=== PATIENT | female | born 1990 | race Hispanic/Latino ===

== ENCOUNTER 2018-09-21 15:01 | Emergency (ER) | payer BC ==
[2018-09-21] MEDS ORDERED: NA CHLORIDE 0.9% 1,000 ML ONE ×2 (15:56→17:34)
[2018-09-21] MEDS ORDERED: PROMETHAZINE 25 MG/ML VIAL ONE (16:19)
[2018-09-21 16:30] LABS: BUN Blood Urea Nitrogen 12 mg/dL (7-18); Bicarbonate 24 mmol/L (21-32); Glucose Level 92 mg/dL (74-106); Potassium 3.6 mmol/L (3.5-5.1); Sodium Level 141 mmol/L (136-145)
[2018-09-21 16:31] LABS: Absolute Lymphocytes (CBC) 0.8 K/uL (0.7-4.9); Absolute Monocytes 0.2 K/uL (0.1-1.3); Absolute Neutrophil 8.8 K/uL (1.8-8.0); Basophils % 0.2 % (0-1.3); Hematocrit 30.6 % (36.0-45.0); Lymphocytes % 7.7 % (15.3-44.8); MPV 10.8 fL (7.6-11.3); Monocytes % 1.9 % (3.3-12.3)
[2018-09-21 18:11] LABS: Urine Bacteria <20 /HPF (<20); Urine Culture Reflex Order NOT NEEDED; Urine RBC NONE SEEN /HPF (NONE SEEN)
--- NOTE | 2018-09-21 18:25 | ER ---
Nurse's Notes [facility] Name: Sangeeta Danielson Age: 28 yrs Sex: Female : 1990 Arrival Date: 09/21/2018 Time: 15:02 Bed 20 Private MD: Diagnosis: Headache;Dehydration; state Presentation: 09/21 15:18 Presenting complaint: states: Headache nausea and vomiting that started about sg an hour ago, has felt weak today, pt appears pale and lethargic in triage, denies Fever at this time. Transition of care: patient was not received from another setting of care. Onset of symptoms was September 21, 2018. Risk Assessment: Do you want to hurt yourself or someone else? Patient reports no desire to harm self or others. Initial Sepsis Screen: Does the patient meet any 2 criteria? No. Patient's initial sepsis screen is negative. Does the patient have a suspected source of infection? No. Patient's initial sepsis screen is negative. Care prior to arrival: None. 15:18 Method Of Arrival: Ambulatory sg 15:18 Acuity: BRENDA 3 sg Historical: - Allergies: 15:19 No Known Allergies; sg - Home Meds: 15:19 None [Active]; sg - PMHx: 15:19 None; sg - PSHx: 15:19 None; sg - Immunization history:: Adult Immunizations not up to date. - Social history:: Smoking status: Patient/guardian denies using tobacco. - Ebola Screening: : Patient negative for fever greater than or equal to 101.5 degrees Fahrenheit, and additional compatible Ebola Virus Disease symptoms Patient denies exposure to infectious person Patient denies travel to an Ebola-affected area in the 21 days before illness onset No symptoms or risks identified at this time. Screenin:20 Abuse screen: Denies threats or abuse. Nutritional screening: No deficits noted. em Tuberculosis screening: No symptoms or risk factors identified. Fall Risk None identified. Assessment: 16:00 General: Appears in no apparent distress. uncomfortable, ill, Behavior is calm, em cooperative, Reports feeling ill for Denies fever. Pain: Complains of pain in left zygomatic area and left side of forehead Pain currently is 9 out of 10 on a pain scale. Quality of pain is described as sharp. Neuro: Level of Consciousness is awake, alert, obeys commands, Oriented to person, place, time, situation, Reports blurred vision only in the right eye that lasted about 10 minutes headache in left photophobia. Cardiovascular: Capillary refill < 3 seconds Patient's skin is warm and dry. Respiratory: Airway is patent Respiratory effort is even, unlabored, Respiratory pattern is regular, symmetrical. GI: : No signs and/or symptoms were reported regarding the genitourinary system. EENT: No signs and/or symptoms were reported regarding the EENT system. Derm: Skin is intact, is healthy with good turgor, Skin is pink, warm \T\ dry. Musculoskeletal: Range of motion: intact in all extremities. 16:15 Reassessment: I agree with previous assessment. hb 17:28 Reassessment: Patient appears in no apparent distress at this time. Patient and/or em family updated on plan of care and expected duration. Pain level reassessed. Patient is alert, oriented x 3, equal unlabored respirations, skin warm/dry/pink. rates pain 4/10, reports headache is better Patient states feeling better. 18:25 Reassessment: Patient appears in no apparent distress at this time. Patient and/or em family updated on plan of care and expected duration. Pain level reassessed. Patient is alert, oriented x 3, equal unlabored respirations, skin warm/dry/pink. Patient states feeling better. Vital Signs: 15:20 BP 98 / 54; Pulse 78; Resp 18; Temp 99.4; Pulse Ox 100% ; sg 16:20 BP 104 / 57; Pulse 65; Resp 18; Pulse Ox 99% on R/A; Pain 9/10; em 17:33 BP 94 / 49; Pulse 72; Resp 18; Pulse Ox 100% on R/A; Pain 4/10; em 18:09 BP 100 / 51; Pulse 80; Resp 18; Pulse Ox 100% on R/A; em [place] Coma Score: 17:16 Eye Response: spontaneous(4). Verbal Response: oriented(5). Motor Response: obeys snw commands(6). Total: 15. ED Course: 15:02 Patient arrived in ED. ds1 15:17 Arm band placed on. sg 15:19 Triage completed. sg 15:26 [facility]C [facility] snw 15:26 Darrel Munroe MD is Attending Physician. snw 15:40 Juan David Tatum LVN is Primary Nurse. em 16:20 Patient has correct armband on for positive identification. Placed in gown. Bed in low em position. Call light in reach. Side rails up X2. Adult w/ patient. Pulse ox on. NIBP on. 16:20 Initial lab(s) drawn, by me, sent to lab. Inserted saline lock: 20 gauge in right em antecubital area, using aseptic technique. Blood collected. 19:03 No provider procedures requiring assistance completed. IV discontinued, intact, em bleeding controlled, No redness/swelling at site. Pressure dressing applied. Administered Medications: 16:11 Drug: NS 0.9% 1000 ml Route: IV; Rate: 1 bolus; Site: right antecubital; hb 17:30 Follow up: IV Status: Completed infusion; IV Intake: 1000ml em 16:27 Drug: Phenergan 12.5 mg Route: IVP; Site: right antecubital; hb 17:39 Follow up: Response: No adverse reaction; Nausea is decreased em 17:27 Drug: NS 0.9% 1000 ml Route: IV; Rate: 1 bolus; Site: right antecubital; em 19:04 Follow up: IV Status: Completed infusion; IV Intake: 1000ml em 18:29 Drug: Tylenol 1000 mg Route: PO; em 19:02 Follow up: Response: No adverse reaction em Intake: 17:30 IV: 1000ml; Total: 1000ml. em 19:04 IV: 1000ml; Total: 2000ml. em Outcome: 18:25 Discharge ordered by . snw 19:03 Discharged to home ambulatory, with family. em 19:03 Condition: good 19:03 Discharge instructions given to patient, family, Instructed on discharge instructions, follow up and referral plans. medication usage, Demonstrated understanding of instructions, follow-up care, medications, Prescriptions given X 1. 19:05 Patient left the ED. em Signatures: Cullen Osuna, JOSE JUAN RN sg Jessy Delcid, HAND SCRAPER-C HAND SCRAPER-Csnw Juan David Tatum LVN [employer] BROOM CLIPPER em Ivana Kemp ds1 Amanda Hess RN RN hb
--- NOTE | 2018-09-21 18:25 | EDPHYS ---
Physician Documentation [facility] Name: Sangeeta Danielson Age: 28 yrs Sex: Female : 1990 Arrival Date: 09/21/2018 Time: 15:02 Bed 20 Private MD: Darrel Carrasquillo HPI: 09/21 16:07 This 28 yrs old Female presents to ER via Ambulatory with complaints of snw Headache, Nausea, 10 Wks Preg. 16:07 The patient complains of pain to the left eye, left side of forehead and left zygomatic snw area. The patient describes the headache as constant. Onset: The symptoms/episode began/occurred suddenly, today. Severity of symptoms: At its worst the pain was moderate, severe. Headache History: Denies prior headaches. The patient has not experienced similar symptoms in the past. The patient has been recently seen by a physician: an timers inspector specialist, with different complaint(s), initial visit for this , labs performed reveal anemia, Fe supplementation begun. Historical: - Allergies: 15:19 No Known Allergies; sg - Home Meds: 15:19 None [Active]; sg - PMHx: 15:19 None; sg - PSHx: 15:19 None; sg - Immunization history:: Adult Immunizations not up to date. - Social history:: Smoking status: Patient/guardian denies using tobacco. - Ebola Screening: : Patient negative for fever greater than or equal to 101.5 degrees Fahrenheit, and additional compatible Ebola Virus Disease symptoms Patient denies exposure to infectious person Patient denies travel to an Ebola-affected area in the 21 days before illness onset No symptoms or risks identified at this time. ROS: 16:01 ENT: Negative for injury, pain, and discharge, Neck: Negative for injury, pain, and snw swelling, Cardiovascular: Negative for chest pain, palpitations, and edema, Respiratory: Negative for shortness of breath, cough, wheezing, and pleuritic chest pain, Back: Negative for injury and pain, : Negative for injury, bleeding, discharge, and swelling, MS/Extremity: Negative for injury and deformity, Skin: Negative for injury, rash, and discoloration, Neuro: Negative for headache, weakness, numbness, tingling, and seizure. 16:01 Constitutional: Positive for fatigue, malaise. 16:01 Eyes: Positive for pain, of the left eyebrow, left upper eyelid, left lower eyelid and left eye. 16:01 Abdomen/GI: Positive for nausea and vomiting. Exam: 16:01 Head/Face: Normocephalic, atraumatic. Eyes: Pupils equal round and reactive to light, snw extra-ocular motions intact. Lids and lashes normal. Conjunctiva and sclera are non-icteric and not injected. Cornea within normal limits. Periorbital areas with no swelling, redness, or edema. ENT: Nares patent. No nasal discharge, no septal abnormalities noted. Tympanic membranes are normal and external auditory canals are clear. Oropharynx with no redness, swelling, or masses, exudates, or evidence of obstruction, uvula midline. Mucous membranes moist. Neck: Trachea midline, no thyromegaly or masses palpated, and no cervical lymphadenopathy. Supple, full range of motion without nuchal rigidity, or vertebral point tenderness. No Meningismus. Chest/axilla: Normal chest wall appearance and motion. Nontender with no deformity. No lesions are appreciated. Cardiovascular: Regular rate and rhythm with a normal S1 and S2. No gallops, murmurs, or rubs. Normal PMI, no JVD. No pulse deficits. Respiratory: Lungs have equal breath sounds bilaterally, clear to auscultation and percussion. No rales, rhonchi or wheezes noted. No increased work of breathing, no retractions or nasal flaring. Abdomen/GI: Soft, non-tender, with normal bowel sounds. No distension or tympany. No guarding or rebound. No evidence of tenderness throughout. Back: No spinal tenderness. No costovertebral tenderness. Full range of motion. Skin: Warm, dry with normal turgor. Normal color with no rashes, no lesions, and no evidence of cellulitis. MS/ Extremity: Pulses equal, no cyanosis. Neurovascular intact. Full, normal range of motion. Neuro: Awake and alert, GCS 15, oriented to person, place, time, and situation. Cranial nerves II-XII grossly intact. Motor strength 5/5 in all extremities. Sensory grossly intact. Cerebellar exam normal. Normal gait. Psych: Awake, alert, with orientation to person, place and time. Behavior, mood, and affect are within normal limits. 16:01 Constitutional: The patient appears alert, awake, pale, uncomfortable. Vital Signs: 15:20 BP 98 / 54; Pulse 78; Resp 18; Temp 99.4; Pulse Ox 100% ; sg 16:20 BP 104 / 57; Pulse 65; Resp 18; Pulse Ox 99% on R/A; Pain 9/10; em 17:33 BP 94 / 49; Pulse 72; Resp 18; Pulse Ox 100% on R/A; Pain 4/10; em 18:09 BP 100 / 51; Pulse 80; Resp 18; Pulse Ox 100% on R/A; em [place] Coma Score: 17:16 Eye Response: spontaneous(4). Verbal Response: oriented(5). Motor Response: obeys snw commands(6). Total: 15. MDM: 15:26 Patient medically screened. snw 17:16 Data reviewed: vital signs, nurses notes. Data interpreted: Pulse oximetry: on room air snw is 100 %. Interpretation: normal. Counseling: I had a detailed discussion with the patient and/or guardian regarding: the historical points, exam findings, and any diagnostic results supporting the discharge/admit diagnosis, lab results. Response to treatment: the patient's symptoms have markedly improved after treatment. ED course: nausea resolved, pain significantly improved per pt, up to void, denies dizziness. 09/21 15:28 Order name: Flu; Complete Time: 16:53 snw 09/21 15:28 Order name: Strep; Complete Time: 16:40 snw 09/21 15:28 Order name: Abo/rh Typing; Complete Time: 16:44 snw 09/21 15:28 Order name: Basic Metabolic Panel; Complete Time: 16:40 snw 09/21 15:28 Order name: CBC with Diff; Complete Time: 16:40 snw 09/21 15:28 Order name: Urine Culture snw 09/21 15:28 Order name: Urine Microscopic Only; Complete Time: 18:18 snw 09/21 16:33 Order name: Throat Culture EDMS 09/21 16:56 Order name: ABO/RH no charge; Complete Time: 17:08 EDMS 09/21 17:23 Order name: Urine Dipstick--Ancillary (enter results) ms 09/21 17:23 Order name: Urine --Ancillary (enter results) ms 09/21 15:28 Order name: IV Saline Lock; Complete Time: 15:59 09/21 15:28 Order name: Labs collected and sent; Complete Time: 15:59 09/21 15:28 Order name: NPO; Complete Time: 15:59 09/21 16:09 Order name: Oxygen: via NRB at 15L/min x 10 minutes; Complete Time: 16:22 09/21 17:14 Order name: VS Recheck; Complete Time: 17:39 em Administered Medications: 16:11 Drug: NS 0.9% 1000 ml Route: IV; Rate: 1 bolus; Site: right antecubital; hb 17:30 Follow up: IV Status: Completed infusion; IV Intake: 1000ml em 16:27 Drug: Phenergan 12.5 mg Route: IVP; Site: right antecubital; hb 17:39 Follow up: Response: No adverse reaction; Nausea is decreased em 17:27 Drug: NS 0.9% 1000 ml Route: IV; Rate: 1 bolus; Site: right antecubital; em 19:04 Follow up: IV Status: Completed infusion; IV Intake: 1000ml em 18:29 Drug: Tylenol 1000 mg Route: PO; em 19:02 Follow up: Response: No adverse reaction em Disposition: 09/22 07:55 Co-signature as Attending Physician, Darrel Munroe MD I agree with the assessment and tyesha plan of care. Disposition: 09/21/18 18:25 Discharged to Home. Impression: Headache, Dehydration, state. - Condition is Stable. - Discharge Instructions: Iron Deficiency Anemia, Adult, Dehydration, Adult, General Headache Without Cause, Nausea and Vomiting, Adult, First Trimester of , Rehydration, Adult. - Prescriptions for promethazine 25 mg Oral Tablet - take 1 tablet by ORAL route every 6 hours As needed; 10 tablet. - Medication Reconciliation Form, Thank You Letter, Antibiotic Education, Prescription Opioid Use, Work release form form. - Follow up: Emergency Department; When: As needed; Reason: Worsening of condition. Follow up: Private Physician; When: 2 - 3 days; Reason: Recheck today's complaints, Continuance of care, Re-evaluation by your physician. Signatures: Dispatcher [employer] Cullen Flannery RN RN sg Anderson, Corey, MD MD cha Therrien, Shelly, AUTO DESIGN DETAILER-C AUTO DESIGN DETAILER-Csnw Juan David Tatum, BLADE GROOVER BLADE GROOVER em Amanda Hess, RN RN Corrections: (The following items were deleted from the chart) 09/21 19:05 18:25 09/21/2018 18:25 Discharged to Home. Impression: Headache; Dehydration; em state. Condition is Stable. Discharge Instructions: Iron Deficiency Anemia, Adult, Dehydration, Adult, General Headache Without Cause, Nausea and Vomiting, Adult, First Trimester of , Rehydration, Adult. Prescriptions for promethazine 25 mg Oral Tablet - take 1 tablet by ORAL route every 6 hours As needed; 10 tablet. and Forms are Medication Reconciliation Form, Thank You Letter, Antibiotic Education, Prescription Opioid Use. Follow up: Emergency Department; When: As needed; Reason: Worsening of condition. Follow up: Private Physician; When: 2 - 3 days; Reason: Recheck today's complaints, Continuance of care, Re-evaluation by your physician. snw
[2018-09-21] MEDS ORDERED: ACETAMINOPHEN 500 MG TAB ONE (18:34)
[2018-09-21 20:39] LABS: Urine Blood NEGATIVE (NEG); Urine Glucose NEGATIVE (NEG); Urine Protein NEGATIVE (NEG); Urine Specific Gravity 1.015 (1.005-1.030)
== END 2018-09-21 19:05 | disposition home or self-care (01) ==
LOC: ER 15:01
DX: O26.899 Other specified pregnancy related conditions, unspecified trimester (principal); R51 Headache; E86.0 Dehydration; Z3A.00 Weeks of gestation of pregnancy not specified
CPT/HCPCS: 36415; 80048; 81003; 81015; 81025; 85025; 86900; 86901; 87070; 87081; 87086; 87088; 87804; 96361; 96374; 99284; J2550; J7030

== ENCOUNTER 2019-02-23 09:26 | Emergency (ER) | payer BC ==
--- OUTSIDE RECORDS SUMMARY | 2019-02-23 09:28 | XMS REPORT ---
:1990 [facility] Address [address] [place] [address] Care Team Providers Name Role Phone Unavailable Unavailable Unavailable Problems This patient has no known problems. Allergies, Adverse Reactions, Alerts This patient has no known allergies or adverse reactions. Medications This patient has no known medications.
[2019-02-23 10:11] LABS: Urine Blood NEGATIVE (NEG); Urine Glucose NEGATIVE (NEG); Urine Protein NEGATIVE (NEG); Urine Specific Gravity 1.015 (1.005-1.030)
[2019-02-23 10:36] LABS: Urine Bacteria <20 /HPF (<20); Urine RBC <5 /HPF (NONE SEEN)
[2019-02-23 10:37] LABS: Urine Culture Reflex Order NOT NEEDED
[2019-02-23] MEDS ORDERED: SUCRALFATE 1 GM TABLET ONE (10:46)
--- NOTE | 2019-02-23 10:54 | ER ---
Nurse's Notes [facility] Name: Sangeeta Danielson Age: 29 yrs Sex: Female : 1990 Arrival Date: 02/23/2019 Time: 09:29 Bed 8 Private MD: Diagnosis: Gastro-esophageal reflux disease;Nausea and vomiting;Diarrhea, unspecified; state Presentation: 02/23 09:48 Presenting complaint: states: son tested positive for strep on Saturday, last iw night pt started having similar symptoms, abd pain, vomiting, diarrhea, denies fever, denies sore throat, pt c/o pain radiating from back to epigastric area 10/05, pt is approx 34 weeks , was cleared by L\T\D. Transition of care: patient was not received from another setting of care. Onset of symptoms was February 23, 2019. Risk Assessment: Do you want to hurt yourself or someone else? Patient reports no desire to harm self or others. Initial Sepsis Screen: Does the patient meet any 2 criteria? No. Patient's initial sepsis screen is negative. Does the patient have a suspected source of infection? No. Patient's initial sepsis screen is negative. Care prior to arrival: cleared by L\T\D. 09:48 Method Of Arrival: Wheelchair iw 09:48 Acuity: BRENDA 3 iw Triage Assessment: 09:55 General: Appears in no apparent distress. comfortable, Behavior is calm, cooperative, bp appropriate for age. Pain: Complains of pain in abdomen. EENT: No deficits noted. Neuro: No deficits noted. Cardiovascular: No deficits noted. Respiratory: No deficits noted. GI: Reports epigastric pain. : No signs and/or symptoms were reported regarding the genitourinary system. Derm: No deficits noted. Musculoskeletal: No deficits noted. FUNERAL GREETER: 09:55 LMP 06/23/2018 iw Historical: - Allergies: 09:55 No Known Allergies; iw - Home Meds: 09:55 None [Active]; iw - PMHx: 09:55 None; iw - PSHx: 09:55 None; iw - Immunization history:: Adult Immunizations not up to date. - Social history:: Smoking status: Patient/guardian denies using tobacco. - Ebola Screening: : Patient negative for fever greater than or equal to 101.5 degrees Fahrenheit, and additional compatible Ebola Virus Disease symptoms Patient denies exposure to infectious person Patient denies travel to an Ebola-affected area in the 21 days before illness onset No symptoms or risks identified at this time. Screenin:03 Abuse screen: Denies threats or abuse. Denies injuries from another. Nutritional bp screening: No deficits noted. Tuberculosis screening: No symptoms or risk factors identified. Fall Risk None identified. Assessment: 10:03 General: SEE TRIAGE NOTE. bp 10:59 Reassessment: PO CHALLENGE SUCCESSFUL. bp 11:04 Reassessment: PT D/C HOME AMBULATORY WITH FAMILY, DX WITH GERD. bp Vital Signs: 09:55 BP 93 / 59; Pulse 91; Resp 16; Temp 97.5(TE); Pulse Ox 99% on R/A; Pain 3/10; iw 11:06 BP 101 / 57; Pulse 87; Resp 16; Temp 97.5; Pulse Ox 99% ; bp ED Course: 09:29 Patient arrived in ED. as 09:31 [facility]-C [facility]. snw 09:31 Adi Steiner MD is Attending Physician. snw 09:46 Jan Kim, JOSE JUAN is Primary Nurse. bp 09:54 Triage completed. iw 09:55 Arm band placed on. iw 10:01 Group A Streptococcus Rapid Sc Sent. hj 10:01 Strep Sent. hj 10:01 Urine Culture Sent. hj 10:01 Urine Microscopic Only Sent. hj 10:03 Patient has correct armband on for positive identification. Bed in low position. Call bp light in reach. Side rails up X2. Adult w/ patient. 11:05 No provider procedures requiring assistance completed. Patient did not have IV access bp during this emergency room visit. Administered Medications: 10:30 Drug: CarafATE 1 grams Route: PO; bp 10:43 Follow up: Response: No adverse reaction bp Outcome: 10:54 Discharge ordered by . snw 11:05 Discharged to home ambulatory, with family. bp 11:05 Condition: stable 11:05 Discharge instructions given to patient, Instructed on discharge instructions, follow up and referral plans. medication usage, Demonstrated understanding of instructions, follow-up care, medications, Prescriptions given X 1. 11:06 Patient left the ED. bp Signatures: Jessy Delcid FNP-C FNP-Csnw Martinez, Tanya as Adelia Krishna, RN RN iw Jb Hutson, RN RN hj Jan Kim, RN RN bp
--- NOTE | 2019-02-23 10:55 | EDPHYS ---
Physician Documentation [facility] Name: Sangeeta Danielson Age: 29 yrs Sex: Female : 1990 Arrival Date: 02/23/2019 Time: 09:29 Bed 8 Private MD: ED Physician Adi Steiner HPI: 02/23 10:56 This 29 yrs old Female presents to ER via Wheelchair with complaints of snw Epigastric Pain, Back Pain, 33 wks preg. 10:56 The patient presents with abdominal pain in the epigastric area. Onset: The snw symptoms/episode began/occurred suddenly, 2 day(s) ago, and became persistent. The symptoms do not radiate. Associated signs and symptoms: Pertinent positives: nausea, vomiting, and diarrhea, Pertinent negatives: fever. The symptoms are described as crampy. Severity of pain: At its worst the pain was moderate. It is unknown whether or not the patient has had similar symptoms in the past. The patient has not recently seen a physician. sons with similar s/s, Spouse with mild N/loose stools over the weekend. 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 - Social history:: Smoking status: Patient/guardian denies using tobacco. - Ebola Screening: : Patient negative for fever greater than or equal to 101.5 degrees Fahrenheit, and additional compatible Ebola Virus Disease symptoms Patient denies exposure to infectious person Patient denies travel to an Ebola-affected area in the 21 days before illness onset No symptoms or risks identified at this time. ROS: 10:56 Constitutional: Negative for fever, chills, and weight loss, Eyes: Negative for injury, snw pain, redness, and discharge, ENT: Negative for injury, pain, and discharge, Neck: Negative for injury, pain, and swelling, Cardiovascular: Negative for chest pain, palpitations, and edema, Respiratory: Negative for shortness of breath, cough, wheezing, and pleuritic chest pain, Back: Negative for injury and pain, : Negative for injury, bleeding, discharge, and swelling, MS/Extremity: Negative for injury and deformity, Skin: Negative for injury, rash, and discoloration, Neuro: Negative for headache, weakness, numbness, tingling, and seizure. 10:56 Abdomen/GI: Positive for abdominal pain, nausea, vomiting, and diarrhea, of the epigastric area, 33 week IUP. Exam: 10:56 Constitutional: This is a well developed, well nourished patient who is awake, alert, snw and in no acute distress. Head/Face: Normocephalic, atraumatic. Eyes: Pupils equal round and reactive to light, extra-ocular motions intact. Lids and lashes normal. Conjunctiva and sclera are non-icteric and not injected. Cornea within normal limits. Periorbital areas with no swelling, redness, or edema. ENT: Nares patent. No nasal discharge, no septal abnormalities noted. Tympanic membranes are normal and external auditory canals are clear. Oropharynx with no redness, swelling, or masses, exudates, or evidence of obstruction, uvula midline. Mucous membranes moist. Neck: Trachea midline, no thyromegaly or masses palpated, and no cervical lymphadenopathy. Supple, full range of motion without nuchal rigidity, or vertebral point tenderness. No Meningismus. Chest/axilla: Normal chest wall appearance and motion. Nontender with no deformity. No lesions are appreciated. Cardiovascular: Regular rate and rhythm with a normal S1 and S2. No gallops, murmurs, or rubs. Normal PMI, no JVD. No pulse deficits. Respiratory: Lungs have equal breath sounds bilaterally, clear to auscultation and percussion. No rales, rhonchi or wheezes noted. No increased work of breathing, no retractions or nasal flaring. Back: No spinal tenderness. No costovertebral tenderness. Full range of motion. Skin: Warm, dry with normal turgor. Normal color with no rashes, no lesions, and no evidence of cellulitis. MS/ Extremity: Pulses equal, no cyanosis. Neurovascular intact. Full, normal range of motion. Neuro: Awake and alert, GCS 15, oriented to person, place, time, and situation. Cranial nerves II-XII grossly intact. Motor strength 5/5 in all extremities. Sensory grossly intact. Cerebellar exam normal. Normal gait. Psych: Awake, alert, with orientation to person, place and time. Behavior, mood, and affect are within normal limits. 10:56 Abdomen/GI: Inspection: gravid appearance, is noted, Bowel sounds: normal, Palpation: abdomen is soft and non-tender, in all quadrants. Vital Signs: 09:55 BP 93 / 59; Pulse 91; Resp 16; Temp 97.5(TE); Pulse Ox 99% on R/A; Pain 3/10; iw 11:06 BP 101 / 57; Pulse 87; Resp 16; Temp 97.5; Pulse Ox 99% ; bp MDM: 09:45 Patient medically screened. snw 11:00 Data reviewed: vital signs, nurses notes. Data interpreted: Pulse oximetry: on room air snw is 99 %. Interpretation: normal. Counseling: I had a detailed discussion with the patient and/or guardian regarding: the historical points, exam findings, and any diagnostic results supporting the discharge/admit diagnosis, lab results, the need for outpatient follow up, to return to the emergency department if symptoms worsen or persist or if there are any questions or concerns that arise at home. Special discussion: Based on the patient's Hx, exam, and Dx evaluation, there is no indication for emergent surgery or inpatient Tx. It is understood by the patient/guardian that if the Sx's persist or worsen they need to return immediately for re-evaluation. Based on the history and exam findings, there is no indication for further emergent testing or inpatient evaluation. I discussed with the patient/guardian the need to see the OB Gyne specialist for further evaluation of the symptoms. I discussed with the patient/guardian the need to see the primary care provider for further evaluation of the symptoms. 02/23 09:52 Order name: Strep snw 02/23 09:52 Order name: Urine Culture w 02/23 09:52 Order name: Urine Microscopic Only; Complete Time: 10:38 snw 02/23 09:52 Order name: Group A Streptococcus Rapid Sc; Complete Time: 10:25 EDMS 02/23 10:07 Order name: Urine Dipstick--Ancillary (enter results); Complete Time: 10:12 bd 02/23 10:07 Order name: Urine --Ancillary (enter results); Complete Time: 10:12 bd 02/23 09:52 Order name: Urine Dipstick-Ancillary (obtain specimen); Complete Time: 10:01 snw 02/23 10:27 Order name: Throat Culture EDOK 02/23 10:53 Order name: PO challenge; Complete Time: 11:01 snw Administered Medications: 10:30 Drug: CarafATE 1 grams Route: PO; bp 10:43 Follow up: Response: No adverse reaction bp Disposition: 02/24 07:34 Co-signature as Attending Physician, Adi Steiner MD I agree with the assessment and kdr plan of care. Disposition: 02/23/19 10:54 Discharged to Home. Impression: Gastro-esophageal reflux disease, Nausea and vomiting, Diarrhea, unspecified, state. - Condition is Stable. - Discharge Instructions: Food Choices to Help Relieve Diarrhea, Adult, Diarrhea, Adult, Gastroesophageal Reflux Disease, Adult, Rehydration, Adult, Vomiting, Adult. - Prescriptions for Tums - take 1 unit by ORAL route 3-4 times daily; 1 bottle. - Medication Reconciliation Form, Thank You Letter, Antibiotic Education, Prescription Opioid Use form. - Family Work Release (02/23/19 11:18). bd - Follow up: Private Physician; When: 1 - 2 days; Reason: Recheck today's complaints, Continuance of care, Re-evaluation by your physician. Follow up: Emergency Department; When: As needed; Reason: Worsening of condition. Signatures: Dispatcher [employer] [facility] Adi Steiner MD MD [facility] Jessy Delcid, BATTERY CONTAINER TESTER [employer]C BATTERY CONTAINER TESTER [employer] Adelia Krishna, JOSE JUAN RN Jan Kim RN RN Hali Decker bd Corrections: (The following items were deleted from the chart) 02/23 11:06 10:54 02/23/2019 10:54 Discharged to Home. Impression: Gastro-esophageal reflux bp disease; Nausea and vomiting; Diarrhea, unspecified; state. Condition is Stable. Forms are Medication Reconciliation Form, Thank You Letter, Antibiotic Education, Prescription Opioid Use. Follow up: Private Physician; When: 1 - 2 days; Reason: Recheck today's complaints, Continuance of care, Re-evaluation by your physician. Follow up: Emergency Department; When: As needed; Reason: Worsening of condition. snw
== END 2019-02-23 11:06 | disposition home or self-care (01) ==
LOC: ER 09:26
DX: O26.893 Other specified pregnancy related conditions, third trimester (principal); K21.9 Gastro-esophageal reflux disease without esophagitis; Z3A.33 33 weeks gestation of pregnancy
CPT/HCPCS: 81003; 81015; 81025; 87070; 87077; 87081; 87086; 87088; 87186; 99283